=== PATIENT | male | born 1970 | race Caucasian/White ===

== ENCOUNTER 2018-03-14 12:16 | Outpatient (CLI) | payer OTHER ==
[2018-03-14 15:43] VITALS: BP 116/72
== END 2018-03-14 15:46 | disposition home or self-care (01) ==
LOC: ORTHO 12:16
PROVIDERS: ATTEND Nurse Practitioner Family
DX: S92.001A Unspecified fracture of right calcaneus, initial encounter for closed fracture (principal); F17.210 Nicotine dependence, cigarettes, uncomplicated; F12.90 Cannabis use, unspecified, uncomplicated; Z60.2 Problems related to living alone; Z56.0 Unemployment, unspecified; X58.XXXA Exposure to other specified factors, initial encounter; Y93.89 Activity, other specified; Y92.89 Other specified places as the place of occurrence of the external cause; Y99.8 Other external cause status
CPT/HCPCS: 73650; 99213

== ENCOUNTER 2018-04-06 08:45 | Outpatient (CLI) | payer MEDICAID, OTHER ==
[2018-04-06 09:02] VITALS: BP 120/79
== END 2018-04-06 09:36 | disposition home or self-care (01) ==
LOC: ORTHO 08:45
PROVIDERS: ATTEND Nurse Practitioner Family
DX: S92.0 Fracture of calcaneus (principal); F17.210 Nicotine dependence, cigarettes, uncomplicated; F12.10 Cannabis abuse, uncomplicated; X58.XXXD Exposure to other specified factors, subsequent encounter
CPT/HCPCS: 73650; 99213; A4590

== ENCOUNTER 2018-04-27 10:21 | Outpatient (CLI) | payer MEDICAID, OTHER ==
[2018-04-27 10:37] VITALS: BP 139/85
== END 2018-04-27 11:21 | disposition home or self-care (01) ==
LOC: ORTHO 10:21
PROVIDERS: ATTEND Nurse Practitioner Family
DX: S92.001G Unspecified fracture of right calcaneus, subsequent encounter for fracture with delayed healing (principal); F17.200 Nicotine dependence, unspecified, uncomplicated; F12.90 Cannabis use, unspecified, uncomplicated; Z60.2 Problems related to living alone; Z56.0 Unemployment, unspecified; X58.XXXD Exposure to other specified factors, subsequent encounter
CPT/HCPCS: 73650; 99213; A4590

== ENCOUNTER 2018-05-18 09:01 | Outpatient (CLI) | payer MEDICAID ==
[~2018-05-18] VITALS: Ht 177.8 cm; Wt 145.0 kg
[2018-05-18 09:02] VITALS: BP 127/84
== END 2018-05-18 09:51 | disposition home or self-care (01) ==
LOC: ORTHO 09:01
PROVIDERS: ATTEND Nurse Practitioner Family
DX: S92.001G Unspecified fracture of right calcaneus, subsequent encounter for fracture with delayed healing (principal); F17.210 Nicotine dependence, cigarettes, uncomplicated; F12.90 Cannabis use, unspecified, uncomplicated; Z56.0 Unemployment, unspecified; Z60.2 Problems related to living alone; X58.XXXD Exposure to other specified factors, subsequent encounter
CPT/HCPCS: 73650; 99213; L4360